=== PATIENT | female | born 1985 | race Caucasian/White ===

== ENCOUNTER → 2020-10-07 10:01 | Outpatient (BNVA) | payer OTHER, SELFPAY | PROVIDERS: Visit Provider Nurse Practitioner Family | DX: Z20.822 Contact with and (suspected) exposure to COVID-19 (principal) | CPT/HCPCS: 87635 ==

== ENCOUNTER 2023-03-25 20:09 | Emergency (ER) | payer MEDICAID, SELFPAY ==
[2023-03-25 20:15] VITALS: BP 133/73; PULSE 95; RESP 16; TEMP 36.7; O2SAT 96; BMI 53.7
--- NOTE | 2023-03-25 20:29 | USR_ITS ---
PROCEDURE INFORMATION: Exam: US , Limited Exam date and time: 03/25/2023 9:31 PM Age: 38 years old Clinical indication: Injury or trauma; Fall; Sprain or strain; Lower; Injury date: 03/18/2023; Injury details: Morbidly obese patient fell today from two stairs height, left ankle sprain, no FX. G1-p0. No vaginal bleeding. Diagnosed with subchorionic hemorrhage 6 weeks ago, has been on bed rest. Had ultrasound by Dr. Michael gagnon on 03/18/23 = no residual subchorionic hemorrhage. ; Additional info: Fall injury, HX of subchorionic bleed LABS AND CLINICAL REPORTS: Last menstrual period start date: 12/01/2022 Gestational age (Established): 16 w 2 d Estimated due date (Established): 09/07/2023 TECHNIQUE: Imaging protocol: Real-time ultrasound of the maternal uterus with image documentation. Exam focused on the clinical indication. COMPARISON: US transvaginal [id number] 08/21/2019 11:17 AM FINDINGS: Gestation: Intrauterine gestation. heart rate: 150 bpm position: Transverse position. presentation: Transverse Placenta: Posterior placenta . Posterior placenta with no placenta previa or subchorionic bleed. Amniotic fluid: Amniotic fluid volume is normal. BIOMETRY: Gestational age (AUA): 16 w 3 d. Single viable intrauterine with EGA 16 weeks 3 days. Estimated due date (AUA): 09/06/2022. LUISANA by ultrasound September 06, 2023. Estimated weight: 152 g. Estimated weight 152 g which is 5 oz. . Biparietal diameter (BPD): 3.4 cm. EGA (BPD) is 16 w 4 d Head circumference (HC): 12.8 cm. EGA (HC) is 16 w 4 d Abdominal circumference (AC): 10.3 cm. EGA (AC) is 16 w 2 d Femur length (FL): 2.1 cm. EGA (FL) is 16 w 2 d Cephalic Index (CI): 86.3 % HC/AC: 1.25 FL/HC: 16.4 % FL/AC: 20.4 % MATERNAL: Uterus: Uterus measures 14.3 cm x 13.3 cm x 9.7 cm. Right ovary/adnexa: Right ovary is obscured by overlying bowel gas. Left ovary/adnexa: Left ovary is obscured by overlying bowel gas. US/US OB >= 14 weeks fetus [id number] IMPRESSION: 1. Single viable intrauterine with EGA 16 weeks 3 days. 2. LUISANA by ultrasound September 06, 2023. 3. Estimated weight 152 g which is 5 oz. . 4. Posterior placenta with no placenta previa or subchorionic bleed. 5. Transverse position.
--- NOTE | 2023-03-25 20:31 | XRR_ITS ---
PROCEDURE INFORMATION: Exam: XR Right Ankle Exam date and time: 03/25/2023 8:45 PM Age: 38 years old Clinical indication: Injury or trauma; Fall; Blunt trauma; Ankle; Right TECHNIQUE: Imaging protocol: Radiologic exam of the right ankle. Views: 3 or more views. COMPARISON: No relevant prior studies available. FINDINGS: Bones/joints: Osseous structures are intact. No fracture, dislocation or malalignment. Joint surfaces are perserved. There are moderate size spurs arising from the posterior and plantar aspect of the calcaneus. There is also some degenerative spurring along the dorsal aspect of the talus and navicular bone. Soft tissues: Normal. XR/XR ankle RT min 3V* [id number] IMPRESSION: No acute bony abnormalities..
--- NOTE | 2023-03-25 20:51 | W.ED.FALL ---
HPI - Fall General: Chief Complaint: Fall Stated Complaint: Injury Rt Ankle\16Wks ckeck Baby Time Seen by Provider: 03/25/23 20:28 History of Present Illness: 38-year-old female fell yesterday injuring her right ankle. Patient has a history of subchorionic hemorrhage with her present and at this time is at 16 weeks. Patient denies any bloody discharge at this time. Patient reports pain to the right ankle. Patient reports no vaginal or pelvic discomfort. Patient appears nontoxic. Patient appears in no pain. Review of Systems General: Reports: 10 or more systems reviewed and unremarkable except in HPI and below : Reports: other (16 weeks history of subchorionic hemorrhage) Musc: Reports: extremity pain (Right ankle pain injury) PFS ED PFSH: Medical History (Updated 03/25/23 @ 22:00 by CHIDI Munguia) Amenorrhea, secondary Dermoid cyst of scalp Infertility, female Obesity PCOS (polycystic ovarian syndrome) Sebaceous cyst She was seen at the [facility] clinic and has had two sebaceous cysts there. Removal was done by Dr. Piper at [facility] several years ago. She would like to see about getting this removed. Surgical History S/P cholecystectomy 2008-Performed in [place] S/P tonsillectomy and adenoidectomy 10 Y/O Performed in [place] Family History Mother Diabetes Thyroid condition Hypertension Stroke Grandfather Diabetes grandfather Heart disease paternal great Hypertension paternal Grandmother Diabetes paternal Breast cancer maternal Family/Other Breast cancer maternal aunt x3 Sister Hypertension Denies family history of Anesthesia complication Bleeding disorder Social History (Updated 10/07/20 @ 08:29 by Jaci Barker NP) Smoking and tobacco status: former smoker Quit status (tobacco): has quit using tobacco Year quit tobacco: 2013- smoked for 3 years Alcohol intake: never Substance/Drug Use: current Substance/Drug use frequency: Special occassions/opportunity only Additional social history: poorly balanced diet Physical Exam Const: COMMON NORMALS: alert HENMT: COMMON NORMALS: normocephalic HEAD & SCALP: normocephalic Neck/C-Spine: COMMON NORMALS: full ROM Resp: COMMON NORMALS: normal respiratory effort and clear to auscultation bilaterally AUSCULTATION: clear to auscultation bilaterally Cardio: COMMON NORMALS: regular rate and regular rhythm RATE: regular rate RHYTHM: regular rhythm GI: COMMON NORMALS: Soft to palpation PALPATION: Yes Soft to palpation Back/Pelvis: COMMON NORMALS: thoracic and lumbar spine normal to inspection Extremity: RIGHT LOWER EXTREMITY: Yes foot & digits (Lateral swelling, remainder of exam unremarkable) Right ankle: Yes inspection, Yes palpation and Yes ROM Neuro: SENSORIUM/ORIENTATION: Yes alert Skin: COMMON NORMALS: turgor normal GENERAL SKIN EXAM: turgor normal Course Vital Signs: Vital signs: Vital Signs Temperature 98.1 F 03/25/23 20:15 Pulse Rate 95 03/25/23 20:15 Respiratory Rate 16 03/25/23 20:15 Blood Pressure 133/73 03/25/23 20:15 Pulse Oximetry 96 03/25/23 20:15 Oxygen Delivery Me thod Room Air 03/25/23 20:15 MDM - Fall Medical Decision Making 38-year-old female fell yesterday evening and felt a pop in her ankle. Patient continued to have pain in the ankle today and was concerned for injury of the ankle and swelling to the ankle. Patient was also concern for her because she has a history of a subchorionic hemorrhage. Patient denies any bleeding at this time. Vital signs are normal. Differential diagnosis includes but not limited to subchorionic hemorrhage, threatened , placenta previa, anxiety about health, ankle fracture, ankle sprain. X-ray of the ankle showed no fracture. Ultrasound showed subchorionic bleed bleed and active at 16 weeks with good heart tones. Reviewed exam with patient with recommendations for treatment and follow-up. Patient reported understanding. Lab Data Radiology Impressions Ankle X-Ray 03/25/23 20:31 IMPRESSION: No acute bony abnormalities.. Discharge Plan Discharge Patient Disposition: Home Clinical Impression: Fall (on) (from) other stairs and steps, initial encounter Ankle sprain Qualifiers: Encounter type: initial encounter Involved ligament of ankle: unspecified ligament Laterality: right Qualified Code(s): S93.401A - Sprain of unspecified ligament of right ankle, initial encounter Qualifiers: Weeks of gestation: 16 weeks Qualified Code(s): Z3A.16 - 16 weeks gestation of Condition: Stable Prescriptions: No Action aspirin 81 mg tablet,delayed release (DR/EC) 81 mg PO QDAY DHA 200 mg capsule PO DAILY Discharge Orders: Discharge ED (Routine); Ordered 03/25/23 Ordered By: Duc Mead Discharge Diet: Usual diet Discharge Activity: Increase activity as tolerated Patient Instructions: Ankle Sprain (ED) Activity Restrictions/Additional Instructions: Activity as tolerated. Use ice packs to ankle to help with pain. Use Tylenol for further pain relief. Continue with routine care as directed by BLOOD BANK BOOKING CLERK or primary care. Return to ED for new concerns. Coding Level of Care Code ED Capacitor Tester for Maggie Daigle
[2023-03-25 22:07] LABS: Add Urine Microscopic? NO; Charge for UA Resulting for Rev
[2023-03-25 22:09] LABS: Bilirubin Urine Neg (Negative); Blood Urine Neg (Negative); Glucose Urine UA Norm (Normal); Ketones Urine 1+ (Negative); Leukocyte Esterase Urine Negative (Negative); Nitrate Urine Negative (Negative); Protein Urine Neg (Negative); Urine Appearance Clear (CLEAR); Urine Color Yellow (Yellow); Urobilinogen Urine Neg (Negative); pH Urine 6 (5-7)
== END 2023-03-25 22:17 | disposition home or self-care (01) ==
PROVIDERS: Emergency Provider Nurse Practitioner Family
DX: O9A.212 Injury, poisoning and certain other consequences of external causes complicating pregnancy, second trimester (principal); S93.401A Sprain of unspecified ligament of right ankle, initial encounter; Z3A.16 16 weeks gestation of pregnancy; W10.8XXA Fall (on) (from) other stairs and steps, initial encounter; Z79.82 Long term (current) use of aspirin; Z87.891 Personal history of nicotine dependence
CPT/HCPCS: 73610; 76805; 81003; 99284

== ENCOUNTER → 2023-06-03 10:17 | Outpatient (BNVA) | payer MEDICAID, SELFPAY | PROVIDERS: PCP Nurse Practitioner Family; Visit Provider Nurse Practitioner Family | DX: E55.9 Vitamin D deficiency, unspecified (principal); R53.83 Other fatigue; R73.9 Hyperglycemia, unspecified; Z13.6 Encounter for screening for cardiovascular disorders | CPT/HCPCS: 80053; 80061; 81003; 82306; 82607; 82728; 82746; 83036; 83550; 84439; 84443; 84481; 85007; 85027 ==

== ENCOUNTER 2024-01-30 08:49 | Emergency (ER) | payer MEDICAID, SELFPAY ==
--- NOTE | 2024-01-30 08:56 | ECG_ITS ---
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 Measurements Intervals [place] Rate: 99 P: 49 AL: 177 QRS: 82 QRSD: 103 T: 63 QT: 350 QTc: 451 Interpretive Statements SINUS RHYTHM No previous ECG available for comparison Electronically Signed On 01-31-2024 13:36:36 CDT by Orlin Castro M.D. [id number]
[2024-01-30 08:59] VITALS: BP 123/93; PULSE 98; RESP 22; TEMP 36.8; O2SAT 97; BMI 58.2
[2024-01-30 09:17] LABS: Add Urine Microscopic? NO; Charge for UA Resulting for Rev
[2024-01-30 09:18] VITALS: BP 151/88; PULSE 83; O2SAT 95
[2024-01-30 09:19] LABS: ABG PCO2 35.6 mmHg (35-45); ABG PH Result 7.44 (7.35-7.45); Alveolar-Arterial Oxygen Gradi 2.8 mmHg (5-10); Arterial Blood Gas Hematocrit 45.2 % (37-47); Base Excess ABG 0.7 mmol/L (-2.0-2.0); Blood Gas Allen Test Pos; Blood Gas Operator Identificat WALCI; Blood Gas Sample Site Radial, right; Blood Gas Sample Type Arterial; Carboxyhemoglobin 1.5 %THgb (0.4-20.1); HCO3 ABG 24.4 mmol/L (22-26); HGB O2 Sat 95.8 % (95-100); Ionized Calcium Level - ABG 1.2 mmol/L (1.1-1.4); Methemoglobin 0.6 % (0.4-1.5); Oxygen Device ROOM AIR; Oxygen Saturation ABG 97.9; PO2 ABG 84.6 mmHg (80.0-100.0); PO2 FiO2 Ratio Arterial Blood 0; Potassium Level - ABG 3.7 mmol/L (3.5-5.0); Total Hemoglobin 14.7 g/dL (12-16)
[2024-01-30 09:23] LABS: Bilirubin Urine Neg (Negative); Blood Urine Neg (Negative); Glucose Urine UA Norm (Normal); Ketones Urine Negative (Negative); Nitrate Urine Negative (Negative); Protein Urine Neg (Negative); Urine Appearance Clear (CLEAR); Urine Color Yellow (Yellow); pH Urine 7 (5-7)
[2024-01-30 09:24] LABS: Leukocyte Esterase Urine Negative (Negative); Urobilinogen Urine Norm (Negative)
[2024-01-30 09:31] LABS: Basophils % 0.5 %; Eosinophils # 0.2 10^3/uL (0.0-0.8); Hematocrit 45.2 % (36-47); Lymphocytes % 34.3 %; Mean Corpuscular HGB Conc 32.7 g/dL (30-55); Mean Corpuscular Hemoglobin 28.2 pg (27-33); Mean Corpuscular Volume 86.3 fl (85-98); Mean Platelet Volume 9.4 fL (7.4-10.4); Monocytes # 0.6 10^3/uL (0.2-0.9); Monocytes % 7.1 %; Neutrophils # 4.83 10^3/uL (1.8-7.7); Neutrophils % 55.8 %; Nucleated Red Blood Cells % 0 %; Platelet Count 344 10^3/cmm (157-399); Red Blood Count 5.24 10^6/uL (3.85-5.65); Red Cell Distribution Width 13.8 % (12.1-15.1); White Blood Count 8.65 10^3/uL (3.29-11.43)
[2024-01-30 09:39] LABS: HCG, Serum Qual Negative (Negative)
[2024-01-30 09:40] LABS: D Dimer 0.55 ug/mLFEU (0-0.59)
[2024-01-30 09:43] LABS: Alanine Aminotransferase 17 U/L (0-33); Albumin Level 4.3 g/dL (3.5-5.2); Alkaline Phosphatase 90 U/L (35-105); Anion Gap 12.9 (5-19); Aspartate Amino Transferase 15 U/L (0-32); Blood Urea Nitrogen 13 mg/dL (6-20); Calcium 9.4 mg/dL (8.5-10.5); Carbon Dioxide 26 mmol/L (22-29); Chloride 106 mmol/L (98-107); Creatinine Clr Calc Pharmacy 196.0841; Globulin 3.9 g/dL (1.3-4.6); Glomerular Filtration Rate 111.9 mL/min (90-130); Glucose 115 mg/dL (65-115); Osmolality Calculated 293 mOsm/kg (285-295); Potassium 3.9 mmol/L (3.5-5.1); Sodium 141 mmol/L (136-145); Total Bilirubin 0.3 mg/dL (0.15-1.2); Total Protein 8.2 g/dL (6.6-8.7)
[2024-01-30 10:02] VITALS: BP 112/79; PULSE 72; O2SAT 93
--- NOTE | 2024-01-30 10:30 | ED_ITS ---
HPI - Chest Pain 2 General: Chief Complaint: Chest Pain Stated Complaint: nausea, feels like heart is skipping Time Seen by Provider: 01/30/24 08:54 History of Present Illness: 39-year-old female presents emergency ro om complaining of palpitations in her chest she states she feels a thumping sensation in her chest. No recent trauma no fever sweats or chills no hemoptysis no chest pain. She is extremely anxious. She has had a lot of social stressors in the last last year. She is breathing rapidly. She is also concerned because her period is late and she had a miscarriage with her previous . His palpitations have been intermittent for the last several days. Associated symptoms: Reports palpitations; Deny abdominal pain, dyspnea or fever(s) Review of Systems 2 Const: Denies: fever(s) or chills Card: Reports: palpitations; Denies: chest pain, edema or swelling of feet/ankles Resp: Denies: dyspnea GI: Denies: abdominal pain : Denies: dysuria, urinary frequency or urinary urgency Musc: Denies: neck pain or back pain Skin/Breast: Denies: rash PFSH ED 2 PFSH: Medical History (Updated 01/30/24 @ 10:22 by Pedro Awad, DO) Anxiety Encounter to discuss test results Depression Infertility, female Amenorrhea, secondary PCOS (polycystic ovarian syndrome) Obesity Dermoid cyst of scalp Sebaceous cyst She was seen at the [facility] clinic and has had two sebaceous cysts there. Removal was done by Dr. Piper at [facility] several years ago. Cysts were removed again by Dr. Marmolejo at the [facility]. Surgical History S/P cholecystectomy 2009-Performed in [place] S/P tonsillectomy and adenoidectomy 10 Y/O Performed in [place] Family History Mother Diabetes Thyroid disease Hypertension Stroke Grandfather Diabetes grandfather Heart disease paternal great Hypertension paternal Grandmother Diabetes paternal Breast cancer maternal Family/Other Breast cancer maternal aunt x3 Sister Hypertension Denies family history of Anesthesia complication Bleeding disorder Social History Smoking and tobacco/nicotine status: never used tobacco/nicotine Quit status (tobacco/nicotine): has quit using Year quit tobacco: 2014- smoked for 3 years Alcohol intake: never Substance/Drug Use: current Substance/Drug use frequency: Special occassions/opportunity only Additional social history: poorly balanced diet Physical Exam 2 Const: COMMON NORMALS: no acute distress GENERAL APPEARANCE: cooperative and comfortable ORIENTATION/CONSCIOUSNESS: Yes awake, Yes oriented to person, Yes oriented to place and Yes oriented to time HENMT: COMMON NORMALS: normocephalic, atraumatic and hearing grossly normal bilaterally HEAD & SCALP: normocephalic and atraumatic Resp: COMMON NORMALS: normal respiratory effort, No retractions, No use of accessory muscles and clear to auscultation bilaterally AUSCULTATION: clear to auscultation bilaterally Cardio: COMMON NORMALS: regular rate, regular rhythm and No murmurs present (Cardio) RATE: regular rate RHYTHM: regular rhythm GI: COMMON NORMALS: Soft to palpation and No hepatosplenomegaly present A USCULTATION: Yes normoactive bowel sounds PALPATION: Yes Soft to palpation, No Tenderness to palpation present (GI), No Guarding due to palpation present (GI) and Yes No hepatosplenomegaly present Extremity: COMMON NORMALS: normal to inspection, capillary refill normal, no clubbing, cyanosis or edema, no calf tenderness and no pedal edema Neuro: SENSORIUM/ORIENTATION: Yes oriented to person, Yes oriented to place and Yes oriented to time Skin: COMMON NORMALS: no rashes or lesions noted GENERAL SKIN EXAM: no rashes or lesions noted Course 2 Vital Signs: Vital signs: Vital Signs Temperature 98.3 F 01/30/24 08:59 Pulse Rate 87 01/30/24 10:56 Respiratory Rate 22 H 01/30/24 08:59 Blood Pressure 115/75 01/30/24 10:56 Pulse Oximetry 94 01/30/24 10:56 Oxygen Delivery Me thod Room Air 01/30/24 10:02 MDM - Chest Pain Medical Decision Making Patient had a few symptomatic PVCs but otherwise rhythm was unremarkable. She is not having any chest discomfort she only complains of a palpitation sensation in her chest. When initially seen her that she may be hyperventilating but her blood gas was normal. She is extremely anxious. Patient mention to nurse about having thoughts of suicide on a daily basis. This something and stretched out over number of years when she was a teenager she had done some cutting but she has not advanced any lethality in a significant way. When she was around 19 or 20 she was admitted to [facility] on a psychiatric hold has not had a recurrence since then. She tells me she sees a counselor and has a plan to develop coping mechanisms she realizes she has these thoughts from time to time but that they will pass and usually just allows them to pass. She also has a secondary backup in social support when she gets excessively stressed such as today. For example today she reached out to her significant other and sought out help because of the symptoms she was having and she did not want to she was concerned that the symptoms were something ominous. Given all this in total and the fact that she is pursuing help at [facility] as well as other avenues I do not believe she is an immediate harm to herself or others and can be safely discharged After long discussion patient encouraged her not to use the Xanax instead use hydroxyzine 1 every 8 hours as needed warned her would make her sleepy. Continue the paroxetine add bupropion and follow-up with [facility] as planned. No symptoms at the time of discharge. Lab Data 01/30/24 09:16 01/30/24 09:16 Laboratory Results WBC 8.65 10^3/uL (3.29-11.43) 01/30/24 09:16 RBC 5.24 10^6/uL (3.85-5.65) 01/30/24 09:16 Hgb 14.80 g/dL (11.27-16.99) 01/30/24 09:16 Hct 45.2 % (36-47) 01/30/24 09:16 MCV 86.3 fl (85-98) 01/30/24 09:16 MCH 28.2 pg (27-33) 01/30/24 09:16 MCHC 32.7 g/dL (30-55) 01/30/24 09:16 RDW 13.8 % (12.1-15.1) 01/30/24 09:16 Plt Count 344 10^3/cmm (157-399) 01/30/24 09:16 MPV 9.4 fL (7.4-10.4) 01/30/24 09:16 Neut % (Auto) 55.8 % 01/30/24 09:16 Lymph % (Auto) 34.3 % 01/30/24 09:16 [place] % (Auto) 7.1 % 01/30/24 09:16 Eos % (Auto) 2.0 % 01/30/24 09:16 Baso % (Auto) 0.5 % 01/30/24 09:16 Neut # (Auto) 4.83 10^3/uL (1.8-7.7) 01/30/24 09:16 Lymph # (Auto) 3.0 10^3/uL (0.8-4.8) 01/30/24 09:16 [place] # (Auto) 0.6 10^3/uL (0.2-0.9) 01/30/24 09:16 Eos # (Auto) 0.2 10^3/uL (0.0-0.8) 01/30/24 09:16 Baso # (Auto) 0.0 10^3/uL (0.0-0.1) 01/30/24 09:16 Nucleated RBC % (auto) 0 % 01/30/24 09:16 Nucleated RBCs # 0.0 /100WBC 01/30/24 09:16 D-Dimer 0.55 ug/mLFEU (0-0.59) 01/30/24 09:16 Specimen Type Arterial 01/30/24 09:08 Sample Site Radial, right 01/30/24 09:08 ABG pH 7.44 (7.35-7.45) 01/30/24 09:08 ABG pCO2 35.6 mmHg (35-45) 01/30/24 09:08 ABG pO2 84.6 mmHg (80.0-100.0) 01/30/24 09:08 ABG PO2/FiO2 Ratio 0 01/30/24 09:08 ABG HCO3 24.4 mmol/L (22-26) 01/30/24 09:08 ABG O2 Saturation 97.9 01/30/24 09:08 ABG Base Excess 0.7 mmol/L (-2.0-2.0) 01/30/24 09:08 Rolf Test Pos 01/30/24 09:08 A-a O2 Gradient 2.8 mmHg (5-10) L 01/30/24 09:08 Hematocrit 45.2 % (37-47) 01/30/24 09:08 Hgb O2 Saturation 95.8 % (95-100) 01/30/24 09:08 Carboxyhemoglobin 1.5 %THgb (0.4-20.1) 01/30/24 09:08 Methemoglobin 0.6 % (0.4-1.5) 01/30/24 09:08 Total Hemoglobin 14.7 g/dL (12-16) 01/30/24 09:08 Sodium 141.0 mmol/L (131-143) 01/30/24 09:08 Potassium 3.7 mmol/L (3.5-5.0) 01/30/24 09:08 Glucose 117.0 mg/dL (70-115) H 01/30/24 09:08 Ionized Calcium 1.2 mmol/L (1.1-1.4) 01/30/24 09:08 O2 Delivery Device Room air 01/30/24 09:08 FiO2 21.0 % 01/30/24 09:08 Radio Sportscaster ID [place] 01/30/24 09:08 Sodium 141 mmol/L (136-145) 01/30/24 09:16 Potassium 3.9 mmol/L (3.5-5.1) 01/30/24 09:16 Chloride 106 mmol/L (98-107) 01/30/24 09:16 Carbon Dioxide 26 mmol/L (22-29) 01/30/24 09:16 Anion Gap 12.9 (5-19) 01/30/24 09:16 BUN 13 mg/dL (6-20) 01/30/24 09:16 Creatinine 0.6 mg/dL (0.5-0.9) 01/30/24 09:16 GFR Calculation 111.9 mL/min (90-130) 01/30/24 09:16 Glucose 115 mg/dL (65-115) 01/30/24 09:16 Calculated Osmolality 293 mOsm/kg (285-295) 01/30/24 09:16 Calcium 9.4 mg/dL (8.5-10.5) 01/30/24 09:16 Total Bilirubin 0.3 mg/dL (0.15-1.2) 01/30/24 09:16 AST 15 U/L (0-32) 01/30/24 09:16 ALT 17 U/L (0-33) 01/30/24 09:16 Alkaline Phosphatase 90 U/L (35-105) 01/30/24 09:16 Total Protein 8.2 g/dL (6.6-8.7) 01/30/24 09:16 Albumin 4.3 g/dL (3.5-5.2) 01/30/24 09:16 Globulin 3.9 g/dL (1.3-4.6) 01/30/24 09:16 HCG, Qual Negative (Negative) 01/30/24 09:16 Urine Color Yellow (Yellow) 01/30/24 09:05 Urine Appearance Clear (CLEAR) 01/30/24 09:05 Urine pH 7 (5-7) 01/30/24 09:05 Ur Specific [place] 1.010 (1.005-1.030) 01/30/24 09:05 Urine Protein Neg (Negative) 01/30/24 09:05 Urine Glucose (UA) Norm (Normal) 01/30/24 09:05 Urine Ketones Negative (Negative) 01/30/24 09:05 Urine Blood Neg (Negative) 01/30/24 09:05 Urine Nitrate Negative (Negative) 01/30/24 09:05 Urine Bilirubin Neg (Negative) 01/30/24 09:05 Urine Urobilinogen Norm mg/dL (Negative) 01/30/24 09:05 Ur Leukocyte Esterase Negative (Negative) 01/30/24 09:05 No radiology studies performed this visit Discharge Plan Discharge Patient Disposition: Home Clinical Impression: Anxiety, Symptomatic PVCs Condition: Stable Prescriptions: New bupropion HCl 150 mg tablet extended release 24 hr 150 mg PO DAILY Qty: 30 0RF hydroxyzine HCl 25 mg tablet 25 mg PO Q8H PRN (Reason: anxiety) Qty: 20 0RF Discontinued alprazolam 0.5 mg tablet See Rx Instructions PO DAILY PRN (Reason: anxiety) 30 Days Qty: 30 0RF Rx Instructions: 1/2 tab daily and PRN anxiety orally daily PRN; No Action aspirin 81 mg tablet,delayed release (DR/EC) 81 mg PO QDAY DHA 200 mg capsule PO DAILY pomegranate xt-bioflav,citrus 250-250 mg capsule PO progesterone micronized 200 mg capsule 200 mg PO DAILY lidocaine-epinephrine 1 %-1:100,000 solution 1 ml SUBCUT ONCE Qty: 1 0RF povidone-iodine [Betadine Swabsticks] 10 % swab 1 applic topical ONCE Qty: 1 0RF lidocaine (PF) 10 mg/mL (1 %) solution 10 mg SUBCUT ONCE Qty: 1 0RF paroxetine HCl [Paxil] 20 mg tablet 20 mg PO DAILY Qty: 90 3RF Trulicity 0.75 mg/0.5 mL pen injector 0.75 mg SUBCUT ONCE 30 Days Qty: 15 1RF Discharge Orders: Discharge ED (Routine); Ordered 01/30/24 Ordered By: Pedro Awad Referrals: CYDNEY Chicas, HEALTH SOCIAL WORK PROFESSOR [Primary Care Provider] - Discharge Diet: Usual diet Patient Instructions: Opioid Safety, Pain Management Activity Restrictions/Additional Instructions: Thank you for choosing [facility] for your healthcare needs today. It is very important that you follow up as instructed or that you return to the Emergency Department should you have concerns or if your condition changes or worsens in any way. You were seen today for palpitation sensations. Rhythm monitoring here in the emergency room showed occasional PVCs which you were symptomatic of. Your EKG did not show any acute changes. The remainder of your labs are otherwise normal. Recommend that you continue to paroxetine avoid taking the Xanax instead use hydroxyzine 1 every 8 hours as needed for anxiety attacks. Add bupropion 150 mg once daily. Keep your appointments with [facility] so they can reevaluate your medications. Coding Level of Care Code ED Dough Molder for Maggie Daigle
[2024-01-30 10:56] VITALS: BP 115/75; PULSE 87; O2SAT 94
== END 2024-01-30 10:45 | disposition home or self-care (01) ==
PROVIDERS: Emergency Provider Family Medicine; PCP Nurse Practitioner Family
DX: F41.9 Anxiety disorder, unspecified (principal); I49.3 Ventricular premature depolarization; Z79.82 Long term (current) use of aspirin; Z79.85 Long-term (current) use of injectable non-insulin antidiabetic drugs; Z87.891 Personal history of nicotine dependence
CPT/HCPCS: 36600; 80051; 80053; 81003; 82330; 82805; 84703; 85025; 85378; 93005; 99284

== ENCOUNTER → 2024-02-04 08:38 | Outpatient (BNVA) | payer MEDICAID, SELFPAY | PROVIDERS: PCP Nurse Practitioner Family; Visit Provider Nurse Practitioner Family | DX: F41.1 Generalized anxiety disorder (principal) | CPT/HCPCS: 80048; 82306; 83036 ==

== ENCOUNTER 2024-02-07 18:34 | Emergency (ER) | payer MEDICAID, SELFPAY ==
[2024-02-07 18:38] VITALS: BP 138/87; PULSE 82; RESP 20; TEMP 36.8; O2SAT 98
--- NOTE | 2024-02-07 18:48 | ECG_ITS ---
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 Measurements Intervals [place] Rate: 79 P: 32 AR: 186 QRS: 56 QRSD: 101 T: 63 QT: 383 QTc: 441 Interpretive Statements SINUS RHYTHM WITH MARKED SINUS ARRHYTHMIA Compared to ECG 01/30/2024 09:01:19 No significant changes Electronically Signed On 02-07-2024 20:44:36 CDT by Delfino Hardin M.D. [email or web address] [id number]
--- NOTE | 2024-02-07 20:16 | ECG_ITS ---
[facility] Test Date: 2024-02-07 Pat Name: Merly Braden Department: Room: Gender: Female President Commercial Bank: : 1985 Requested By: Ana Saleh Order Number: [id number] Maverick MD: Delfino Hardin M.D. Measurements Intervals [place] Rate: 74 P: 36 HI: 200 QRS: 59 QRSD: 98 T: 69 QT: 405 QTc: 451 Interpretive Statements SINUS RHYTHM WITH SINUS ARRHYTHMIA Compared to ECG 02/07/2024 18:48:15 No significant changes Electronically Signed On 02-08-2024 19:06:34 CDT by Delfino Hardin M.D. [id number]
[2024-02-07 20:34] LABS: Basophils % 0.4 %; Eosinophils # 0.1 10^3/uL (0.0-0.8); Eosinophils % 0.9 %; Hematocrit 42.1 % (36-47); Lymphocytes # 3.1 10^3/uL (0.8-4.8); Lymphocytes % 31.2 %; Mean Corpuscular HGB Conc 33.7 g/dL (30-55); Mean Corpuscular Hemoglobin 28.9 pg (27-33); Mean Corpuscular Volume 85.7 fl (85-98); Mean Platelet Volume 9.4 fL (7.4-10.4); Monocytes # 0.5 10^3/uL (0.2-0.9); Monocytes % 5.3 %; Neutrophils # 6.19 10^3/uL (1.8-7.7); Nucleated Red Blood Cells % 0 %; Platelet Count 304 10^3/cmm (157-399); Red Blood Count 4.91 10^6/uL (3.85-5.65); Red Cell Distribution Width 13.5 % (12.1-15.1); White Blood Count 9.99 10^3/uL (3.29-11.43)
[2024-02-07 20:37] LABS: ABG PH Result 7.44 (7.35-7.45); Alveolar-Arterial Oxygen Gradi 4.1 mmHg (5-10); Arterial Blood Gas Hematocrit 44.8 % (37-47); Base Excess ABG 1.4 mmol/L (-2.0-2.0); Blood Gas Allen Test Pos; Blood Gas Operator Identificat CL; Blood Gas Sample Site Radial, right; Blood Gas Sample Type Arterial; Carboxyhemoglobin 0.9 %THgb (0.4-20.1); HCO3 ABG 25.3 mmol/L (22-26); HGB O2 Sat 95.1 % (95-100); Ionized Calcium Level - ABG 1.2 mmol/L (1.1-1.4); Methemoglobin 0.1 % (0.4-1.5); PO2 ABG 70.8 mmHg (80.0-100.0); Potassium Level - ABG 3.8 mmol/L (3.5-5.0); Total Hemoglobin 14.6 g/dL (12-16)
[2024-02-07 20:46] LABS: Bilirubin Urine Neg (Negative); Blood Urine Neg (Negative); Glucose Urine UA Norm (Normal); Ketones Urine Negative (Negative); Nitrate Urine Negative (Negative); Protein Urine Neg (Negative); Urine Appearance Cloudy (CLEAR); Urine Color Yellow (Yellow); pH Urine 8 (5-7)
[2024-02-07 20:47] LABS: Bacteria Urine 2+ /hpf; Hyaline Casts Urine 0-4 /lpf; Leukocyte Esterase Urine Trace (Negative); Mucus Urine TRACE /hpf; RBC Urine 0-4 /hpf (0-2); Urobilinogen Urine Neg (Negative)
[2024-02-07 20:57] LABS: Troponin(5th) Baseline < 6 ng/L (0-10)
[2024-02-07 21:06] LABS: Alanine Aminotransferase 13 U/L (0-33); Alkaline Phosphatase 81 U/L (35-105); Anion Gap 15.8 (5-19); Aspartate Amino Transferase 14 U/L (0-32); Blood Urea Nitrogen 14 mg/dL (6-20); C Reactive Protein 10.8 mg/L (0.0-4.9); Carbon Dioxide 23 mmol/L (22-29); Chloride 105 mmol/L (98-107); Creatinine Clr Calc Pharmacy 184.7962; Glomerular Filtration Rate 111.9 mL/min (90-130); Glucose 89 mg/dL (65-115); Osmolality Calculated 290 mOsm/kg (285-295); Potassium 3.8 mmol/L (3.5-5.1); Sodium 140 mmol/L (136-145); Thyroid Stimulating Hormone 2.84 uIU/mL (0.27-4.20); Total Bilirubin 0.3 mg/dL (0.15-1.2)
--- NOTE | 2024-02-07 21:09 | W.ED.ANXIETY ---
HPI - Anxiety General: Chief Complaint: Anxiety Stated Complaint: panic attack Time Seen by Provider: 02/07/24 20:11 History of Present Illness: 39-year-old female with a history of obesity, depression and anxiety who presents to the emergency room after having palpitations and tachycardia, feeling of anxiety and chest tightness. She says her heart started to race and then she started having numbness in her hands and around her mouth. She said her heart started racing and got up to 180. She tried breathing and taking her hydroxyzine which did not help. She says now her palpitations are gone and numbness is gone but now she feels incredibly weak. Has some malaise at this point. Review of Systems Narrative: Constitutional symptoms: Negative except as documented in HPI. Skin symptoms: Negative except as documented in HPI. Eye symptoms: Negative except as documented in HPI. ENMT symptoms: Negative except as documented in HPI. Respiratory symptoms: Negative except as documented in HPI. Cardiovascular symptoms: Negative except as documented in HPI. Gastrointestinal symptoms: Negative except as documented in HPI. Genitourinary symptoms: Negative except as documented in HPI. Musculoskeletal symptoms: Negative except as documented in HPI. Neurologic symptoms: Negative except as documented in HPI. Psychiatric symptoms: Negative except as documented in HPI. Endocrine symptoms: Negative except as documented in HPI. PFSH ED PFSH: Medical History Anxiety Encounter to discuss test results Depression Infertility, female Amenorrhea, secondary PCOS (polycystic ovarian syndrome) Obesity Dermoid cyst of scalp Sebaceous cyst She was seen at the [facility] and has had two sebaceous cysts there. Removal was done by Dr. Piper at [facility] several years ago. Cysts were removed again by Dr. Marmolejo at the [facility]. Surgical History S/P cholecystectomy 2008-Performed in [place] S/P tonsillectomy and adenoidectomy 10 Y/O Performed in [place] Family History Mother Diabetes Thyroid disease Hypertension Stroke Grandfather Diabetes grandfather Heart disease paternal great Hypertension paternal Grandmother Diabetes paternal Breast cancer maternal Family/Other Breast cancer maternal aunt x3 Sister Hypertension Denies family history of Anesthesia complication Bleeding disorder Social History Smoking and tobacco/nicotine status: never used tobacco/nicotine Quit status (tobacco/nicotine): has quit using Year quit tobacco: 2014- smoked for 3 years Alcohol intake: never Substance/Drug Use: current Substance/Drug use frequency: Special occassions/opportunity only Additional social history: poorly balanced diet Female Reproductive History: Date of last menstrual period: 12/18/23 Physical Exam Narrative: EXAM NARRATIVE: General: Alert, no acute distress. Skin: Warm, dry. Head: Normocephalic, atraumatic. Neck: Supple, trachea midline. Eye: Extraocular movements are intact. Ears, nose, mouth and throat: mucosa moist. Cardiovascular: Regular, Normal peripheral perfusion. Respiratory: Lungs are clear to auscultation, respirations are non-labored, breath sounds are equal, Symmetrical chest wall expansion. Gastrointestinal: Soft, Nontender, Non distended Musculoskeletal: Normal ROM, no deformity. Neurological: Alert and oriented, No focal neurological deficit observed. Psychiatric: Cooperative, appropriate mood & affect. Course Vital Signs: Vital signs: Vital Signs Temperature 98.3 F 02/07/24 18:38 Pulse Rate 82 02/07/24 18:38 Respiratory Rate 20 H 02/07/24 18:38 Blood Pressure 138/87 02/07/24 18:38 Pulse Oximetry 98 02/07/24 18:38 MDM - Anxiety Medical Decision Making Medical decision making: Differential diagnosis including but not limited to and based on the above HPI, review of systems and physical exam: for patient with palpitations: atrial fibrillation with rapid ventricular response. ventricular tachycardia. sinus tachycardia. PVCs. also concern for underlying issues causing tachycardia. Infection, electrolyte abnormalities and thyroid issues Orders placed to evaluate differential diagnosis based on the above differential, HPI and physical exam EKG: Time 1848. Rate 79 normal sinus rhythm, No ST-T changes, no ectopy, normal NH & QRS intervals, This was reviewed and interpreted by myself the ER physician at 1851. Lab Review: Laboratory results were reviewed and interpreted by myself the emergency room physician. Lab work is fairly unremarkable. Troponin is negative. No leukocytosis. She does have what appears to be the start of a urinary tract infection which may have triggered all of this. What she describes may have been an episode of SVT with this point she is in sinus rhythm. I reviewed the patient's medical record. Reexamination: Patient remained stable. She has had no further tachycardia here. No increased work of breathing. No altered mental status. No focal motor deficits. Assessment and plan: Urinary tract infection Anxiety, palpitations ?IV Rocephin in the emergency room, IV Ativan - Discharged home - Discussed findings and plan with patient. Answered any questions. - All laboratory values were reviewed and interpreted personally by myself, the ER physician - All imaging was reviewed and interpreted personally by myself, the ER physician. - Evaluation and treatment of this problem were appropriate in the emergency setting Lab Data 02/07/24 20:02/07/24 20: Laboratory Results WBC 9.99 10^3/uL (3.29-11.43) 02/07/24 20: RBC 4.91 10^6/uL (3.85-5.65) 02/07/24 20: Hgb 14.20 g/dL (11.27-16.99) 02/07/24 20: Hct 42.1 % (36-47) 02/07/24 20: MCV 85.7 fl (85-98) 02/07/24 20: MCH 28.9 pg (27-33) 02/07/24 20: MCHC 33.7 g/dL (30-55) 02/07/24 20: RDW 13.5 % (12.1-15.1) 02/07/24 20: Plt Count 304 10^3/cmm (157-399) 02/07/24 20: MPV 9.4 fL (7.4-10.4) 02/07/24 20: Neut % (Auto) 62.0 % 02/07/24 20: Lymph % (Auto) 31.2 % 02/07/24 20: Hardeman % (Auto) 5.3 % 02/07/24 20: Eos % (Auto) 0.9 % 02/07/24 20: Baso % (Auto) 0.4 % 02/07/24: Neut # (Auto) 6.19 10^3/uL (1.8-7.7) 02/07/24 20:29 Lymph # (Auto) 3.1 10^3/uL (0.8-4.8) 02/07/24 20: Hardeman # (Auto) 0.5 10^3/uL (0.2-0.9) 02/07/24 20: Eos # (Auto) 0.1 10^3/uL (0.0-0.8) 02/07/24 20: Baso # (Auto) 0.0 10^3/uL (0.0-0.1) 02/07/24 20:29 Nucleated RBC % (auto) 0 % 02/07/24 20: Nucleated RBCs # 0.0 /100WBC 02/07/24 20: Specimen Type Arterial 02/07/24 20: Sample Site Radial, right 02/07/24 20: ABG pH 7.44 (7.35-7.45) 02/07/24 20: ABG pCO2 37.0 mmHg (35-45) 02/07/24 20: ABG pO2 70.8 mmHg (80.0-100.0) L 02/07/24 20: ABG HCO3 25.3 mmol/L (22-26) 02/07/24 20: ABG O2 Saturation 96.0 02/07/24 20: ABG Base Excess 1.4 mmol/L (-2.0-2.0) 02/07/24 20: Rolf Test Pos 02/07/24 20: A-a O2 Gradient 4.1 mmHg (5-10) L 02/07/24 20: Hematocrit 44.8 % (37-47) 02/07/24 20: Hgb O2 Saturation 95.1 % (95-100) 02/07/24 20: Carboxyhemoglobin 0.9 %THgb (0.4-20.1) 02/07/24 20: Methemoglobin 0.1 % (0.4-1.5) L 02/07/24 20: Total Hemoglobin 14.6 g/dL (12-16) 02/07/24 20: Sodium 142.0 mmol/L (131-143) 02/07/24 20: Potassium 3.8 mmol/L (3.5-5.0) 02/07/24 20:28 Glucose 91.0 mg/dL (70-115) 02/07/24 20: Ionized Calcium 1.2 mmol/L (1.1-1.4) 02/07/24 20: O2 Delivery Device None 02/07/24 20:28 Phlebotomy Technician ID Cl 02/07/24 20: Sodium 140 mmol/L (136-145) 02/07/24 20: Potassium 3.8 mmol/L (3.5-5.1) 02/07/24 20: Chloride 105 mmol/L (98-107) 02/07/24 20: Carbon Dioxide 23 mmol/L (22-29) 02/07/24 20: Anion Gap 15.8 (5-19) 02/07/24 20: BUN 14 mg/dL (6-20) 02/07/24 20: Creatinine 0.6 mg/dL (0.5-0.9) 02/07/24 20: GFR Calculation 111.9 mL/min (90-130) 02/07/24 20: Glucose 89 mg/dL (65-115) 02/07/24 20: Calculated Osmolality 290 mOsm/kg (285-295) 02/07/24 20: Calcium 9.0 mg/dL (8.5-10.5) 02/07/24: Magnesium 2.0 mg/dL (1.7-2.3) 02/07/24 20: Total Bilirubin 0.3 mg/dL (0.15-1.2) 02/07/24 20: AST 14 U/L (0-32) 02/07/24 20: ALT 13 U/L (0-33) 02/07/24 20: Alkaline Phosphatase 81 U/L (35-105) 02/07/24 20: Troponin T Baseline < 6 ng/L (0-10) 02/07/24 20: C-Reactive Protein 10.8 mg/L (0.0-4.9) H 02/07/24 20: Total Protein 7.0 g/dL (6.6-8.7) 02/07/24 20: Albumin 4.0 g/dL (3.5-5.2) 02/07/24 20: Globulin 3.0 g/dL (1.3-4.6) 02/07/24 20:29 TSH 2.84 uIU/mL (0.27-4.20) 02/07/24 20:29 Urine Color Yellow (Yellow) 02/07/24 20:30 Urine Appearance Cloudy (CLEAR) A 02/07/24 20:30 Urine pH 8 (5-7) H 02/07/24 20:30 Ur Specific [place] 1.010 (1.005-1.030) 02/07/24 20:30 Urine Protein Neg (Negative) 02/07/24 20:30 Urine Glucose (UA) Norm (Normal) 02/07/24 20:30 Urine Ketones Negative (Negative) 02/07/24 20:30 Urine Blood Neg (Negative) 02/07/24 20:30 Urine Nitrate Negative (Negative) 02/07/24 20:30 Urine Bilirubin Neg (Negative) 02/07/24 20:30 Urine Urobilinogen Neg mg/dL (Negative) 02/07/24 20:30 Ur Leukocyte Esterase Trace (Negative) H 02/07/24 20:30 Urine RBC 0-4 /hpf (0-2) H 02/07/24 20:30 Urine WBC 5-10 /hpf (0-5) H 02/07/24 20:30 Ur Squamous Epith Cells 5-10 /hpf (0-5) H 02/07/24 20:30 Amorphous Sediment Not Reportable 02/07/24 20:30 Urine Bacteria 2+ /hpf (NONE) H 02/07/24 20:30 Hyaline Casts 0-4 /lpf H 02/07/24 20:30 Urine Mucus Trace /hpf 02/07/24 20:30 All radiology interpretation(s) finalized by discharge Discharge Plan Discharge Patient Disposition: Home Clinical Impression: Palpitations, Anxiety, Urinary tract infection Condition: Stable Prescriptions: New cefdinir 300 mg capsule 300 mg PO BID 5 Days Qty: 10 0RF No Action aspirin 81 mg tablet,delayed release (DR/EC) 81 mg PO QDAY DHA 200 mg capsule PO DAILY hydroxyzine HCl 25 mg tablet 25 mg PO Q8H PRN (Reason: anxiety) Qty: 60 1RF sertraline [Zoloft] 50 mg tablet 50 mg PO DAILY Qty: 90 0RF pomegranate xt-bioflav,citrus 250-250 mg capsule PO progesterone micronized 200 mg capsule 200 mg PO DAILY paroxetine HCl [Paxil] 20 mg tablet 20 mg PO DAILY Qty: 90 3RF Trulicity 0.75 mg/0.5 mL pen injector 0.75 mg SUBCUT ONCE 30 Days Qty: 15 1RF Discharge Orders: Discharge ED (Routine); Ordered 02/07/24 Ordered By: Ana Arreola Referrals: CYDNEY Chicas, ECONOMICS DEPARTMENT CHAIR [Primary Care Provider] - 1-3 days (Please call for an appointment) Discharge Diet: Usual diet Discharge Activity: Increase activity as tolerated Patient Instructions: Urinary Tract Infection in Women (DC) Activity Restrictions/Additional Instructions: Thank you for choosing [facility] for your healthcare needs today. Please realize this is an emergency room and that we are providing you with a medical screening exam and this may not be complete and all inclusive of all the testing and or work up that you may need to determine your ailment or severity of your illness. You have been screened and evaluated and felt safe for discharge. Health conditions do change or evolve sometimes and as such it is important that you follow up with your Primary Doctor to be re checked, 3-5 days is a general good time frame for follow up. You are always welcome to return to the ED for re assessment if your symptoms are worsening or you have new concerns Coding Level of Care Code ED Supervisor [employer] for Maggie Daigle
[2024-02-07] MEDS: LORazepam 2 mg/mL INJ 10 mL MDV 1 MG IV (21:17)
[2024-02-07] MEDS: cefTRIAXone 1,000 MG in sodium chloride 0.9% (plus) 50 ML 100 MG IV (21:18)
[2024-02-07 21:41] VITALS: BP 104/71; PULSE 72; RESP 16; O2SAT 96
== END 2024-02-07 21:57 | disposition home or self-care (01) ==
PROVIDERS: Emergency Provider Emergency Medicine; PCP Nurse Practitioner Family
DX: F41.9 Anxiety disorder, unspecified (principal); R00.2 Palpitations; N39.0 Urinary tract infection, site not specified; Z79.82 Long term (current) use of aspirin; Z79.85 Long-term (current) use of injectable non-insulin antidiabetic drugs; Z87.891 Personal history of nicotine dependence
CPT/HCPCS: 36600; 80051; 80053; 81001; 82330; 82805; 83735; 84443; 84484; 85025; 86140; 93005; 96374; 96375; 99284; J0696; J2060

== ENCOUNTER → 2024-03-11 13:43 | Outpatient (BNVA) | payer OTHER, MEDICAID, SELFPAY | PROVIDERS: PCP Nurse Practitioner Family; Visit Provider Psychiatry & Neurology Neurology | DX: F41.1 Generalized anxiety disorder (principal) | CPT/HCPCS: 80061 ==

== ENCOUNTER → 2024-04-28 08:57 | Outpatient (BNVA) | payer OTHER, SELFPAY ==
[2024-03-18 08:11] VITALS: BP 124/88; BMI 54.7
== END ==
PROVIDERS: PCP Nurse Practitioner Family; Visit Provider Obstetrics & Gynecology
DX: N97.9 Female infertility, unspecified (principal); Z01.419 Encounter for gynecological examination (general) (routine) without abnormal findings
CPT/HCPCS: 81025; 87624

== ENCOUNTER 2024-05-05 06:00 | Outpatient (CLI) | payer MEDICAID, SELFPAY ==
[2024-03-18 08:11] VITALS: BP 124/88; BMI 54.7
== END 2024-05-05 06:01 | disposition home or self-care (01) ==
LOC: RAD 05-15 13:19
PROVIDERS: PCP Nurse Practitioner Family; Visit Provider Internal Medicine Cardiovascular Disease
DX: R00.0 Tachycardia, unspecified (principal); F41.1 Generalized anxiety disorder; R07.89 Other chest pain; R73.03 Prediabetes; E28.2 Polycystic ovarian syndrome; E66.01 Morbid (severe) obesity due to excess calories; Z68.43 Body mass index [BMI] 50.0-59.9, adult; Z87.891 Personal history of nicotine dependence
CPT/HCPCS: 99204

== ENCOUNTER → 2024-05-05 13:35 | Outpatient (BNVA) | payer MEDICAID, SELFPAY ==
[2024-03-18 08:11] VITALS: BP 124/88; BMI 54.7
== END ==
PROVIDERS: PCP Nurse Practitioner Family; Visit Provider Internal Medicine Cardiovascular Disease
DX: R07.9 Chest pain, unspecified (principal)
CPT/HCPCS: 93005

== ENCOUNTER 2024-06-08 14:29 | Outpatient (CLI) | payer MEDICAID, SELFPAY ==
[2024-03-18 08:11] VITALS: BP 124/88; BMI 54.7
--- NOTE | 2024-06-08 15:00 | USCV_ITS ---
Merly Braden Age: 39 Gender: F : 1985 Exam Date: 06/08/2024 15:02 Ordering Phys: Delfino Hardin MD ([email or web address]) Technologist: CT Exam Location: [facility] Indication: BP: 126 / 84 HR: 76 Rhythm: Sinus Technical Quality: Adequate MEASUREMENTS (Male / Female) Normal Values 2D ECHO LVOT Diameter 2.1 cm LV Ejection Fraction MOD 4C 65.9 % LV Ejection Fraction MOD 2C 51.8 % LV Ejection Fraction 2C AL 50.5 % LA Diameter 4.1 cm RA Systolic Volume 4C AL 40.2 ml RA Systolic Volume 4C MOD 40.9 ml LA Sys Volume AL 51.4 cm cubed LA Sys Volume Index AL 18.7 cm cubed/m squared Aorta at Sinotubular Diameter 2.1 cm M-MODE LA Ao Ratio MM 1.5 AV Cusp Separation MM 2.6 cm DOPPLER AV Peak Velocity 143.0 cm/s LVOT Peak Velocity 101.0 cm/s AV Area Cont Eq vti 3.0 cm squared AV Area Cont Eq pk 2.4 cm squared MV Peak Velocity 81.0 cm/s MV Area PHT 3.0 cm squared Mitral E to A Ratio 0.8 TR Peak Velocity 234.0 cm/s TR Peak Gradient 21.9 mmHg TV Peak E Velocity 72.0 cm/s Right Atrial Pressure 3.0 mmHg Pulmonary Artery Systolic Pressu 24.9 mmHg PV Peak Velocity 123.5 cm/s FINDINGS Left Ventricle Normal left ventricular size and systolic function, EF around 55%, visual. Right Ventricle Normal right ventricular systolic pressure. Right Atrium The right atrium is normal in size. Left Atrium The left atrium is normal in size. Mitral Valve Thickened mitral valve. Aortic Valve No gross abnormalities noted no gross abnormalities noted Tricuspid Valve Minimal thickened tricuspid valve with .trace of tricuspid valve regurgitation. Pulmonic Valve Abnormalities noted Pericardium Normal pericardium without effusion. Aorta Normal ascending aorta dimension. IVC The inferior vena cava appears normal. CONCLUSIONS Normal left ventricular size and systolic function, EF around 55%, (visual.) Minimal thickening in the mitral valve. There is no pericardial effusion. There are no intracardiac masses. Minimal thickened tricuspid valve with .trace of tricuspid valve regurgitation. Estimated pulmonary artery peak systolic pressure 25 mm of Hg. No similar previous studies are available for comparison. Dr Delfino Hardin MD FACC (Electronically Signed) Final Date: 14 June 2024 17:20 S
== END 2024-06-08 14:30 | disposition home or self-care (01) ==
LOC: RAD 14:30
PROVIDERS: PCP Nurse Practitioner Family; Visit Provider Internal Medicine Cardiovascular Disease
DX: I34.81 Nonrheumatic mitral (valve) annulus calcification (principal); R06.09 Other forms of dyspnea
CPT/HCPCS: 93306

== ENCOUNTER → 2024-09-15 10:15 | Outpatient (BNVA) | payer MEDICAID, SELFPAY ==
[2024-03-18 08:11] VITALS: BP 124/88; BMI 54.7
== END ==
PROVIDERS: PCP Nurse Practitioner Family; Visit Provider Nurse Practitioner Family
DX: R73.03 Prediabetes (principal); E66.01 Morbid (severe) obesity due to excess calories; Z68.43 Body mass index [BMI] 50.0-59.9, adult; Z13.6 Encounter for screening for cardiovascular disorders; D18.00 Hemangioma unspecified site; E28.2 Polycystic ovarian syndrome; N92.6 Irregular menstruation, unspecified; Z79.899 Other long term (current) drug therapy
CPT/HCPCS: 80053; 80061; 81003; 83036; 84443; 85025

== ENCOUNTER → 2024-09-28 09:19 | Outpatient (BNVA) | payer OTHER, SELFPAY ==
[2024-09-17 14:06] VITALS: BP 130/70; BMI 60.4
== END ==
PROVIDERS: PCP Nurse Practitioner Family; Visit Provider Nurse Practitioner Family
DX: R00.2 Palpitations (principal); R79.89 Other specified abnormal findings of blood chemistry
CPT/HCPCS: 83735; 84439; 84443; 84481; 86376

== ENCOUNTER 2024-11-26 06:05 | Outpatient (CLI) | payer MEDICAID, SELFPAY ==
[2024-09-17 14:06] VITALS: BP 130/70; BMI 60.4
--- NOTE | 2024-11-26 06:19 | MR_ITS ---
WS: [id number] MRI NECK WITH CONTRAST TECHNIQUE: Noncontrast axial T1, axial T2 FSE fat sat, coronal T2 fat sat, coronal T1, coronal T1 fat sat, sagittal T2 fat sat, plus contrast enhanced coronal, sagittal, and axial T1 fat sat images obtained. CLINICAL INFORMATION: SKIN LESION COMPARISON: None. FINDINGS: Exam is limited due to susceptibility artifact from body habitus and shoulder artifact. Parotid glands are normal. Normal submandibular glands. No evidence of supraglottic or glottic mass. Slightly nodular thyroid partially visualized. Partially visualized is suspected vascular anomaly involving the LEFT upper extremity with dilated vessels and enhancement. This is at the edge of the [id number] and recommend further evaluation with CTA LEFT upper extremity. MR/MR orbit face neck wo/w* [id number] IMPRESSION: 1. Partially evaluated subcutaneous enhancement extending about the LEFT shoul lawrence at the edge of the [id number] with dilated vessels suspicious for vascul ar malformation considering history. This is only partially visualized. This wo uld be better evaluated with CTA LEFT upper extremity
[2024-11-26] MEDS: gadobenate dimeglumine 20 mL vial IV (07:06)
== END 2024-11-26 06:06 | disposition home or self-care (01) ==
PROVIDERS: PCP Nurse Practitioner Family; Visit Provider Nurse Practitioner Family
DX: D18.01 Hemangioma of skin and subcutaneous tissue (principal); R93.6 Abnormal findings on diagnostic imaging of limbs
CPT/HCPCS: 70543

== ENCOUNTER 2024-11-27 06:57 | Outpatient (CLI) | payer MEDICAID, SELFPAY ==
[2024-09-17 14:06] VITALS: BP 130/70; BMI 60.4
--- NOTE | 2024-11-27 07:01 | US_ITS ---
WS: [id number] ULTRASOUND SOFT TISSUES LEFT shoulder HISTORY: left shoulder lesion COMPARISON: None available. TECHNIQUE: 2-D and color Doppler imaging is submitted. Patient indicated area of concern. There is no soft tissue abnormality identified. No hypervascularity. No distortion of the muscles or fibrous septa. US/US soft tissue/extremity [id number] IMPRESSION: Negative ultrasound LEFT shoulder.
== END 2024-11-27 06:58 | disposition home or self-care (01) ==
PROVIDERS: PCP Nurse Practitioner Family; Visit Provider Nurse Practitioner Family
DX: D18.01 Hemangioma of skin and subcutaneous tissue (principal)
CPT/HCPCS: 76882

== ENCOUNTER 2024-12-28 07:41 | Outpatient (CLI) | payer MEDICAID, SELFPAY ==
[2024-09-17 14:06] VITALS: BP 130/70; BMI 60.4
--- NOTE | 2024-12-28 07:51 | CT_ITS ---
WS: [id number] CT angiogram LEFT upper extremity. HISTORY: Skin hemangioma LEFT shoulder. Overlying birthmark. COMPARISON: MRI 11/26/2024 and soft tissue ultrasound 11/27/2024. CT angiogram of the LEFT upper extremity performed. CT angiogram is focused on the LEFT shoulder in the area of concern. The distal arteries are not included. There is good arterial enhancement of the visualized thoracic aorta and great vessels. LEFT carotid and LEFT subclavian arteries are normal caliber. No intensely enhancing mass associated with the subcu soft tissue of the LEFT shoulder. There is a focal area of marked skin thickening and nodularity over the superior and posterior LEFT shoulder with depth of 1.7 cm. The soft tissue thickening extends over a significant length of the posterior shoulder and is contiguous with the muscle surrounding the rotator cuff, most significant the supraspinatus muscle. On a prior MRI there was abnormal signal in the supraspinatus muscle. There is no arterial enhancement identified. There is a large nonenhancing vein extending through the soft tissues of the upper extremity. This draining vein extends to the LEFT external jugular vein and does appear to communicate. Visualized LEFT upper lung is clear. No destructive bone lesions. CT/[place] [id number] IMPRESSION: 1. Large area of soft tissue thickening centered over the superior and posterio r LEFT shoulder. No enhancement of the soft tissue mass on the arterial angiogr am of the LEFT upper extremity. 2. Large nonenhancing draining vein extending from the mass extends centrally a nd does appear to communicate with the LEFT external jugular vein. Consistent w ith a venous cavernous hemangioma. Vein may not enhance due to slow flow or thr ombus. 3. Better visualized on the MRI is involvement of this supraspinatus muscle. Wi thout arterial enhancement the overall extent of this venous vascular malformat ion is difficult.
[2024-12-28] MEDS: iohexol 350 mg/mL 500 mL Btl (per mL) IV (08:49)
== END 2024-12-28 07:42 | disposition home or self-care (01) ==
PROVIDERS: PCP Nurse Practitioner Family; Visit Provider Nurse Practitioner Family
DX: D18.01 Hemangioma of skin and subcutaneous tissue (principal); M79.89 Other specified soft tissue disorders; R93.89 Abnormal findings on diagnostic imaging of other specified body structures
CPT/HCPCS: 73206

== ENCOUNTER → 2025-01-08 11:36 | Outpatient (BNVA) | payer MEDICAID, SELFPAY ==
[2024-09-17 14:06] VITALS: BP 130/70; BMI 60.4
== END ==
PROVIDERS: PCP Nurse Practitioner Family; Visit Provider Nurse Practitioner Family
DX: R73.03 Prediabetes (principal); E06.3 Autoimmune thyroiditis; E28.2 Polycystic ovarian syndrome; E66.01 Morbid (severe) obesity due to excess calories; Z68.43 Body mass index [BMI] 50.0-59.9, adult
CPT/HCPCS: 80053; 84443; 85025

== ENCOUNTER → 2025-02-05 09:09 | Outpatient (BNVA) | payer MEDICAID, SELFPAY ==
[2024-09-17 14:06] VITALS: BP 130/70; BMI 60.4
== END ==
PROVIDERS: PCP Nurse Practitioner Family; Visit Provider Nurse Practitioner Family
DX: E66.01 Morbid (severe) obesity due to excess calories (principal); Z68.43 Body mass index [BMI] 50.0-59.9, adult; R73.03 Prediabetes; E28.2 Polycystic ovarian syndrome; E06.3 Autoimmune thyroiditis; R79.89 Other specified abnormal findings of blood chemistry; N92.6 Irregular menstruation, unspecified; D64.9 Anemia, unspecified; E55.9 Vitamin D deficiency, unspecified
CPT/HCPCS: 80053; 80061; 81003; 82306; 82728; 83036; 83550; 84439; 84443; 85025

== ENCOUNTER → 2025-06-09 10:31 | Outpatient (BNVA) | payer MEDICAID, SELFPAY ==
[2025-02-09 15:02] VITALS: BP 112/80; BMI 62.5
== END ==
PROVIDERS: PCP Nurse Practitioner Family; Visit Provider Nurse Practitioner Family
DX: E06.3 Autoimmune thyroiditis (principal); F33.1 Major depressive disorder, recurrent, moderate; F41.1 Generalized anxiety disorder; R73.03 Prediabetes; E55.9 Vitamin D deficiency, unspecified; D64.9 Anemia, unspecified
CPT/HCPCS: 80053; 80061; 81003; 83036; 84439; 84443; 85025